=== PATIENT | female | born 1935 | race Caucasian/White ===

== ENCOUNTER 2024-06-28 14:06 | Emergency (ER) | payer MEDICARE ==
[~2024-06-28 14:06] MED LIST: AMOXICILLIN500 MG OR; ASPIRIN81 MG OR; ATENOLOL50 MG PO; BETIMOL0.5 % OP; BONIVA150 MG OR; COLESTIPOL1 GM OR; DIOVAN160 MG OR; FISH OIL1000 MG OR; FUROSEMIDE20 MG PO; NAPROSYN500 MG PO; ULTRAM50 M1 PO; ZETIA10 MG PO
== END 2024-06-28 15:38 | disposition left against medical advice (07) ==
LOC: ED 14:06 → LWOBS 15:03
DX: Z53.21 Procedure and treatment not carried out due to patient leaving prior to being seen by health care provider (principal)

== ENCOUNTER 2024-08-29 09:04 | Emergency (ER) | payer MEDICARE ==
[~2024-08-29] VITALS: Ht 157.5 cm; Wt 78.0 kg
[2024-08-29 09:24] VITALS: BP 161/73
[2024-08-29 09:30] VITALS: BP 145/57
[2024-08-29] MEDS ORDERED: DiphenhydrAMINE HCL 50 MG/ML SDV IV ONE (09:45)
[2024-08-29] MEDS ORDERED: METOCLOPRAMIDE HCL 10 MG/2 ML SDV IV ONE (09:45)
[2024-08-29] MEDS ORDERED: KETOROLAC TROMETHAMINE 15 MG/ML SDV IV ONE (09:45)
[2024-08-29 09:46] VITALS: BP 154/57
[2024-08-29 10:07] VITALS: BP 153/57
[2024-08-29 11:06] LABS: EOS% 0.6 % (0-8); HEMATOCRIT 35.4 % (37.0-47.0); HEMOGLOBIN 10.9 g/dl (12.0-16.0); IMMATURE GRANULOCYTES 0.3 % (0.0-5.0); LYMPH% 13.6 % (15-41); MEAN CORPUSCULAR HGB 29.9 pG CALC (26.0-32.0); MEAN CORPUSCULAR HGB CONC 30.8 g/dL CAL (32.0-36.0); MONO% 6.4 % (2-13); NEUT# 9.16 thou/uL (2.00-7.15); NEUT% 78.1 % (42-76); RED BLOOD COUNT 3.65 mill/uL (4.20-5.60)
[2024-08-29 11:20] LABS: CREATININE 1.2 mg/dL (0.5-1.0); POTASSIUM 4.8 mmol/l (3.5-5.1); TOTAL PROTEIN 6.7 g/dL (6.3-8.2)
[2024-08-29 11:25] LABS: BILIRUBIN, TOTAL 0.5 mg/dL (0.02-1.3)
[2024-08-29 11:50] VITALS: BP 153/57
== END 2024-08-29 12:01 | disposition home or self-care (01) ==
LOC: ED 09:04
PROVIDERS: Family Medicine
DX: R51.9 Headache, unspecified (principal); I10 Essential (primary) hypertension; Z20.822 Contact with and (suspected) exposure to COVID-19
CPT/HCPCS: J1200; J1885; J2765